=== PATIENT | female | born 1980 | race Caucasian/White ===

== ENCOUNTER 2018-01-21 18:35 | Emergency (ER) | payer OTHER ==
[2018-01-21 19:01] VITALS: BP 100/57; PULSE 62; RESP 18; TEMP 98.2; O2SAT 100
--- NOTE | 2018-01-21 19:32 | ED PDOC ---
Lower Extremity Pain/Injury Time Seen by Provider: 01/21/18 19:20 Chief Complaint (Nursing): Lower Extremity Problem/Injury Chief Complaint (Provider): Lower Extremity Problem/Injury History Per: Patient History/Exam Limitations: no limitations Onset/Duration Of Symptoms: Days Current Symptoms Are (Timing): Still Present Additional Complaint(s): 46 year old female presents to the emergency department complaining of swelling to her great toe on her left foot, onset a couple days ago. States she went to get a pedicure recently but notes no other foot injury / trauma. Patient also denies fever and chills. PMD: Pricila Godinez Past Medical History Reviewed: Historical Data, Nursing Documentation, Vital Signs Vital Signs: Last Vital Signs Temp 98.2 F 01/21/18 18:59 Pulse 62 01/21/18 18:59 Resp 18 01/21/18 18:59 BP 100/57 L 01/21/18 18:59 Pulse Ox 100 01/21/18 18:59 - Family History Family History: States: Unknown Family Hx - Home Medications Home Medications: Ambulatory Orders Medication Instructions Recorded Cephalexin [Keflex] 500 mg PO QID #28 capsule 01/21/18 Sulfamethoxazole/Trimethoprim 1 tab PO BID #14 tab 01/21/18 [Bactrim DS 800 mg-160 mg] - Allergies Allergies/Adverse Reactions: Allergies Allergy/AdvReac Type Severity Reaction Status Date / Time No Known Allergies Allergy Verified 01/21/18 18:58 Review of Systems ROS Statement: Except As Marked, All Systems Reviewed And Found Negative Constitutional: Negative for: Fever, Chills Musculoskeletal: Positive for: Foot Pain (swelling to great toe on left foot). Negative for: Other (foot injury or truama) Physical Exam - Reviewed Nursing Documentation Reviewed: Yes Vital Signs Reviewed: Yes - Physical Exam Appears: Positive for: Non-toxic, No Acute Distress Head Exam: Positive for: ATRAUMATIC, NORMOCEPHALIC Skin: Positive for: Normal Color, Warm, Dry Eye Exam: Positive for: EOMI, Normal appearance, PERRL ENT: Positive for: Normal ENT Inspection Neck: Positive for: Normal, Painless ROM, Supple Cardiovascular/Chest: Positive for: Regular Rate, Rhythm. Negative for: Murmur Respiratory: Positive for: Normal Breath Sounds. Negative for: Accessory Muscle Use, Respiratory Distress Gastrointestinal/Abdominal: Positive for: Normal Exam, Soft. Negative for: Tenderness Back: Positive for: Normal Inspection Extremity: Positive for: Swelling (at base of nail bed on left foot great toe associated with mild erythema) Neurologic/Psych: Positive for: Alert, Oriented - ECG O2 Sat by Pulse Oximetry: 100 (RA) Pulse Ox Interpretation: Normal Medical Decision Making Medical Decision Makin:30 Patient opts at this time to not have an incision made. She will be given antibiotics and was instructed to soak her foot in warm water. Also advised to follow up with her primary care physician in two to three days if symptoms persist for a re-evaluation. Scribe Attestation: Documented by Kisha Tam, acting as a scribe for Tesha Castellanos PA-C Provider Scribe Attestation: All medical record entries made by the Scribe were at my direction and personally dictated by me. I have reviewed the chart and agree that the record accurately reflects my personal performance of the history, physical exam, medical decision making, and the department course for this patient. I have also personally directed, reviewed, and agree with the discharge instructions and disposition. Disposition - Clinical Impression Clinical Impression: Paronychia - Patient ED Disposition Is Patient to be Admitted: No - Disposition Disposition: Routine/Home Disposition Time: 19:22 Condition: FAIR Additional Instructions: F/U WITH PMD/URGENT CARE/ED IN 2 TO 3 DAYS FOR RE-EVALUATION. Prescriptions: Cephalexin [Keflex] 500 mg PO QID #28 capsule Sulfamethoxazole/Trimethoprim [Bactrim DS 800 mg-160 mg] 1 tab PO BID #14 tab Instructions: Paronychia (DC) Forms: [employer] ([place])
== END 2018-01-21 19:53 | disposition home or self-care (01) ==
LOC: H.ER 18:35
DX: L03.039 Cellulitis of unspecified toe (principal)

== ENCOUNTER 2018-04-22 15:06 | Emergency (ER) | payer OTHER ==
[2018-04-22 15:14] VITALS: BP 100/64; PULSE 83; RESP 16; TEMP 98.4; O2SAT 99
--- NOTE | 2018-04-22 16:57 | ED PDOC ---
HPI: Skin/Bite Injury Time Seen by Provider: 04/22/18 15:59 Chief Complaint (Nursing): Lower Extremity Problem/Injury Chief Complaint (Provider): Thickening of the left great toe nail History Per: Patient History/Exam Limitations: no limitations Additional Complaint(s): 38 yo female with no medical problems presents for evaluation of yellow, broken left great toe nail. Pt states 2-3 months ago she was treated for paronychia on the left great toe. Pt states after getting antibiotics the pain was improved. Pt reports intermittent pain in the same area after sleeping and contributes it to the way she sleeps. Pt states when removing nails kiswahili she notices that neat the base is broken. The distal end of the nail is yellow and cracking. Past Medical History Reviewed: Historical Data, Nursing Documentation, Vital Signs Vital Signs: Last Vital Signs Temp 98.4 F 04/22/18 15:12 Pulse 83 04/22/18 15:12 Resp 16 04/22/18 15:12 BP 100/64 04/22/18 15:12 Pulse Ox 99 04/22/18 15:12 - Medical History PMH: No Chronic Diseases - Surgical History Surgical History: No Surg Hx - Family History Family History: States: Unknown Family Hx - Living Arrangements Living Arrangements: With Family - Social History Current smoker - smoking cessation education provided: No - Home Medications Home Medications: Ambulatory Orders Medication Instructions Recorded Cephalexin [Keflex] 500 mg PO QID #28 capsule 01/21/18 Sulfamethoxazole/Trimethoprim 1 tab PO BID #14 tab 01/21/18 [Bactrim DS 800 mg-160 mg] - Allergies Allergies/Adverse Reactions: Allergies Allergy/AdvReac Type Severity Reaction Status Date / Time No Known Allergies Allergy Verified 01/21/18 18:58 Physical Exam - Reviewed Nursing Documentation Reviewed: Yes Vital Signs Reviewed: Yes - Physical Exam Appears: Positive for: Well, Non-toxic, No Acute Distress Head Exam: Positive for: ATRAUMATIC, NORMAL INSPECTION, NORMOCEPHALIC Skin: Negative for: Normal Color (base of nail (proximal) normal, thickening of distal nail with slight yellow discoloration) Eye Exam: Positive for: Normal appearance ENT: Positive for: Normal ENT Inspection Neck: Positive for: Normal, Painless ROM Cardiovascular/Chest: Positive for: Regular Rate, Rhythm Respiratory: Positive for: CNT, Normal Breath Sounds Gastrointestinal/Abdominal: Positive for: Normal Exam, Soft Back: Positive for: Normal Inspection Extremity: Positive for: Normal ROM Neurologic/Psych: Positive for: Alert, Oriented - ECG O2 Sat by Pulse Oximetry: 99 Medical Decision Making Medical Decision Making: Podiatry consult completed. F.u with Dr. Huff Disposition - Clinical Impression Clinical Impression: Nontraumatic nail splitting - Patient ED Disposition Is Patient to be Admitted: No Counseled Patient/Family Regarding: Diagnosis, Need For Followup - Disposition Referrals: Umair Huff MD [Staff Provider] - Disposition: Routine/Home Disposition Time: 16:59 Condition: STABLE
--- NOTE | 2018-04-22 17:11 | CP.PCM.CON ---
History of Present Illness - History of Present Illness History of Present Illness: Podiatry consult note for Dr. Huff, 38 yo female with no medical problems presents to the ED for evaluation of discolored left hallucal toe nail. Patient states she was treated for paronychia on with antibiotics (keflex). Patient states she has finished her course of antibiotics and pain has subsided. Patient states upon removing her nail haitian she noticed the nail was discolored, however healthy from the nail base. Patient denies f/n/v/sob/. Patient denies pain to the area Past medical history: none Past surgical history: None Allergies: None Social history: Denies smoking or drinking alcohol; denies recreational drugs. Past Patient History - Past Social History Smoking Status: Never Smoked - PSYCHIATRIC Hx Substance Use: No Meds Allergies/Adverse Reactions: Allergies Allergy/AdvReac Type Severity Reaction Status Date / Time No Known Allergies Allergy Verified 01/21/18 18:58 Physical Exam - Constitutional Appears: Well, Non-toxic, No Acute Distress - Head Exam Head Exam: ATRAUMATIC, NORMOCEPHALIC - Extremities Exam Additional comments: Left lower extremity exam focused: Vascular: DP/PT 2/4, CFT <3 secs x10, TG warm to cool, no edema noted, no erythema noted Neuro: protective sensation intact via ipswich 4/4 Derm: no open lesions, left hallucal toe nail distal 80% discolored and thickened. Proximal clearing noted, no onycholysis noted, no clinical signs of infection Ortho: No pain on palpation to the nail bed or nail border, no pain with ROM of the first MPJ - Neurological Exam Neurological exam: Alert, Oriented x3 - Psychiatric Exam Psychiatric exam: Normal Affect, Normal Mood - Skin Skin Exam: Normal Color Results - Vital Signs Recent Vital Signs: Last Vital Signs Temp 98.4 F 04/22/18 15:12 Pulse 83 04/22/18 15:12 Resp 16 04/22/18 15:12 BP 100/64 04/22/18 15:12 Pulse Ox 99 04/22/18 17:00 Assessment & Plan - Assessment and Plan (Free Text) Assessment: 38 yo female with no medical history seen in ED for non traumatic splitting of the nail; possible onychomycosis versus trauma Plan: Patient seen and evaluated History and plan discussed in detail with the attending, Dr Huff Chart and vitals reviewed Patient educated on the etiology of hypertrophic, discolored toenails Patient educated on signs and symptoms of infection; and advised to return to ED if she experiences Patient advised to purchase an richardson board and gently debride the nail Patient educated on normal nail growth period, 6-8 months for a toenail to fully grow. Patient to follow up with Dr. Huff Thank you for the consult.
== END 2018-04-22 17:21 | disposition home or self-care (01) ==
LOC: H.ER 15:06
DX: L60.9 Nail disorder, unspecified (principal)